=== PATIENT | male | born 2000 | race African-American/Black ===

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

== ENCOUNTER 2020-05-03 10:39 | Emergency (ER) | payer SELFPAY ==
[2020-05-03 10:43] VITALS: BP 127/79
--- NOTE | 2020-05-03 11:03 | ER Document Report ---
HPI - HPI Patient complains to provider of: Left shoulder pain Time Seen by Provider: 05/03/20 10:54 Onset: Last week - This is a 20-year-old male who states that he has a history of spontaneous dislocations of the left shoulder he is popped it out several times over the last 2 weeks he states that it went out this morning he was able to get it back in but he has pain to the affected area. He has never received follow-up for this. He has good distal pulses. Associated Symptoms: None Exacerbated by: Denies Relieved by: Denies - ROS ROS Unobtainable: Yes ROS unobtainable due to patient's medical condition Past Medical History - General Information source: Patient - Social History Smoking Status: Never Smoker Cigarette use (# per day): No Chew tobacco use (# tins/day): No Smoking Education Provided: No Frequency of alcohol use: None Drug Abuse: None Lives with: Family Family History: Reviewed & Not Pertinent Renal/ Medical History: Denies: Hx Peritoneal Dialysis - Immunizations Immunizations up to date: Yes Hx Diphtheria, Pertussis, Tetanus Vaccination: Yes Vertical Provider Document - CONSTITUTIONAL Agree With Documented VS: Yes - INFECTION CONTROL TRAVEL OUTSIDE OF THE [place] IN LAST 30 DAYS: No - HEENT HEENT: Atraumatic, Normocephalic, PERRLA - NECK Neck: Normal Inspection, Supple - RESPIRATORY Respiratory: Breath Sounds Normal - CARDIOVASCULAR Cardiovascular: Regular Rate, Regular Rhythm - GI/ABDOMEN Gastrointestinal: Abdomen Soft - BACK Back: Normal Inspection - MUSCULOSKELETAL/EXTREMETIES Musculoskeletal/Extremeties: MAEW - NEURO Level of Consciousness: Awake, Alert - DERM Integumentary: Warm, Dry Course - Re-evaluation Re-evalutation: 05/03/20 16:59 Patient eloped while awaiting an x-ray. - Vital Signs Vital signs: Temp Pulse Resp BP Pulse Ox 97.9 F 46 L 18 127/79 H 99 05/03/20 10:42 05/03/20 10:42 05/03/20 10:42 05/03/20 10:42 05/03/20 10:42 Discharge - Discharge Clinical Impression: Eloped from emergency department Condition: Fair Disposition: AGAINST MEDICAL ADVICE Referrals: SEKOU BARRIENTOS MD [Primary Care Provider] - Follow up as needed
== END 2020-05-03 17:00 | disposition left against medical advice (07) ==
LOC: ER 10:39
DX: M25.512 Pain in left shoulder (principal); Z53.20 Procedure and treatment not carried out because of patient's decision for unspecified reasons
CPT/HCPCS: 99281